=== PATIENT | male | born 1995 | race African-American/Black ===

== ENCOUNTER 2017-06-29 12:16 | Emergency (ER) | payer BC ==
[~2017-06-29] VITALS: Ht 172.7 cm; Wt 85.0 kg
[2017-06-29] MEDS ORDERED: LIDOCAINE HCL 1% 20ML VIAL (Pyxis) INJ MC ONE (18:45)
[2017-06-29] MEDS ORDERED: BACITRACIN ZINC OINT UDPKT TOP ONE (18:45)
[2017-06-29] MEDS ORDERED: IBUPROFEN 600MG TABLET PO ONE (18:45)
[2017-06-29] MEDS ORDERED: TETANUS, DIPHTHERIA, PERTUSSIS VAC/PF 0.5ML (>7YR OLD) IM ONE (18:45)
[2017-06-29 21:25] VITALS: BP 148/88
== END 2017-06-29 21:29 | disposition home or self-care (01) ==
LOC: ER 16:48
DX: L02.01 Cutaneous abscess of face (principal); F12.10 Cannabis abuse, uncomplicated
CPT/HCPCS: 10060; 90471; 90715; 99283; J3490; X7700; Z7610

== ENCOUNTER 2017-07-01 11:42 | Emergency (ER) | payer BC ==
[~2017-07-01] VITALS: Ht 172.7 cm; Wt 87.0 kg
[2017-07-01] MEDS ORDERED: ACETAMINOPHEN 500MG TABLET PO ONE (12:15)
[2017-07-01] MEDS ORDERED: BACITRACIN ZINC OINT UDPKT TOP ONE (12:15)
[2017-07-01 13:15] VITALS: BP 140/77
== END 2017-07-01 14:24 | disposition home or self-care (01) ==
LOC: ER 13:56
DX: Z48.00 Encounter for change or removal of nonsurgical wound dressing (principal)
CPT/HCPCS: 99283